=== PATIENT | male | born 1980 | race Caucasian/White ===

== ENCOUNTER 2018-08-26 20:22 | Emergency (ER) | payer MEDICAID ==
--- NOTE | 2018-08-26 21:17 | EDM.PDOC ---
ED HPI GENERAL MEDICAL PROBLEM - General Chief Complaint: Lower Extremity Injury/Pain Stated Complaint: KNEE PAIN RIGHT Time Seen by Provider: 08/26/18 20:44 Source of Information: Reports: Patient, RN Notes Reviewed, Significant Other ( Girlfriend) History Limitations: Reports: No Limitations - History of Present Illness INITIAL COMMENTS - FREE TEXT/NARRATIVE: The patient states that he developed right anterior knee pain this morning. 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 Other than hard work, the patient does not recall any direct injury to the knee. No prior similar symptoms. The patient states that he took 600 mg of ibuprofen at 10:00 this morning, then again at 18:00 this evening. He states that the ibuprofen DID help. The patient does not have a PCP. Right Knee Pain Score (Numeric/FACES): 7 - Related Data Allergies Allergy/AdvReac Type Severity Reaction Status Date / Time No Known Allergies Allergy Verified 08/26/18 20:44 Home Meds: Home Meds . [No Known Home Meds] 12/10/13 [History] Past Medical History Musculoskeletal History: Reports: Fracture (right hand) - Past Surgical History Musculoskeletal Surgical History: Reports: ORIF (right hand) Social & Family History - Tobacco Use Smoking Status *Q: Current Every Day Smoker Years of Tobacco use: 14 Packs/Tins Daily: 1 Packs/Tins Daily Comment: Down from 2 ppd - Caffeine Use Caffeine Use: Reports: Energy Drinks - Alcohol Use Alcohol Use History: No - Recreational Drug Use Recreational Drug Use: Yes Drug Use in Last 12 Months: No Recreational Drug Type: Reports: Marijuana/Hashish (last smoked 2005) - Living Situation & Occupation Living situation: Reports: , with Significant Other (Girlfriend) Occupation: Employed ([email or web address]) Review of Systems - Review of Systems Review Of Systems: ROS reveals no pertinent complaints other than HPI. ED EXAM, GENERAL - Physical Exam Exam: See Below Exam Limited By: No Limitations General Appearance: Alert, WD/WN, No Apparent Distress Extremities: Other (Mild swelling to the right knee, when compared to the left, however, no other visible abnormality, such as erythema, ecchymosis, or abrasion. There is tenderness to palpation of the patellar tendon, but no tenderness to a patient of the patella or quadriceps tendon. No laxity or pain induced with stressing of the lateral or medial collateral ligament. No tenderness to the posterior knee. Anterior and posterior drawer signs are absent. Neurovascular status of the right lower extremity is intact.) Course - Vital Signs Last Recorded V/S: Last Vital Signs Temp 36.6 C 08/26/18 20:41 Pulse 80 08/26/18 20:41 Resp 16 08/26/18 20:41 BP 123/81 08/26/18 20:41 Pulse Ox 98 08/26/18 20:41 - Re-Assessments/Exams Free Text/Narrative Re-Assessment/Exam: 08/26/18 21:07 Clinically, the patient has right patellar tendinitis, likely strained with heavy exertion at work. The patient states that he has the next 2 days off, but I will give him a note for light duty through Sunday. If his symptoms have not improved by Sunday, I would like him to follow-up in the clinic for an extension of a work note. In the meantime, I would like the patient take over- the-counter ibuprofen, and rest and ice the knee as much as possible. Departure - Departure Time of Disposition: 21:09 Disposition: Home, Self-Care 01 Condition: Good Clinical Impression: Patellar tendinitis of right knee - Discharge Information *PRESCRIPTION DRUG MONITORING PROGRAM REVIEWED*: Not Applicable *COPY OF PRESCRIPTION DRUG MONITORING REPORT IN PATIENT ROSE: Not Applicable Instructions: Tendinitis Referrals: PCP,None [Primary Care Provider] - Demetris Gillette PA [Physician Practice Consultant] - Forms: ED Department Discharge, ED Return to Work/School Form Additional Instructions: You were seen in the emergency room for pain and mild swelling to the front of your right knee, this morning. Based on your history and physical examination, you are suffering from right patellar tendinitis, due to a strain of your right patellar tendon. We recommend that you take [id number] ibuprofen, 2-3 tablets (400-600 mg) every 8 hours, with food, around the clock. Rest your right knee is much as possible, and keep an ice pack on it is much as possible for the next 2 days. A note for light duty has been provided to you. If your knee is still painful by 08/30/2018, please follow-up with RITA Dewey, or one of the other providers in the clinic, to get an extension of a note for work. If any other problems, please do not hesitate to return to the ER.
== END 2018-08-26 21:40 | disposition home or self-care (01) ==
LOC: JD.ED 20:22
DX: M76.51 Patellar tendinitis, right knee (principal); F17.210 Nicotine dependence, cigarettes, uncomplicated
CPT/HCPCS: 99283

== ENCOUNTER 2018-12-22 18:39 | Emergency (ER) | payer BC, MEDICAID ==
--- NOTE | 2018-12-22 19:24 | EDM.PDOC ---
ED HPI GENERAL MEDICAL PROBLEM - General Chief Complaint: Skin Complaint Stated Complaint: infection on leg Time Seen by Provider: 12/22/18 19:03 Source of Information: Reports: Patient, Significant Other (Fiance) History Limitations: Reports: No Limitations - History of Present Illness INITIAL COMMENTS - FREE TEXT/NARRATIVE: Mr. Hudson is a pleasant 38-year-old man with no chronic medical issues, who states that his proximal left leg was punctured with a wire at work on , 12/19/2018. He developed pain to the area on Sunday, which became much worse today, along with redness and swelling. He has not had a fever or drainage. He has not performed any home treatment to it whatsoever. The patient reports a history of MRSA, although denies using antibacterial soap at home. He denies visiting a relative in the hospital or alf. The patient does not have a PCP. He has not received an influenza vaccine this season. Left Lower Leg Pain Score (Numeric/FACES): 9 - Related Data Allergies Allergy/AdvReac Type Severity Reaction Status Date / Time No Known Allergies Allergy Verified 08/26/18 20:44 Home Meds: Home Meds . [No Known Home Meds] 12/10/13 [History] Past Medical History Musculoskeletal History: Reports: Fracture (right hand) - Infectious Disease History Infectious Disease History: Reports: MRSA - Past Surgical History Musculoskeletal Surgical History: Reports: ORIF (right hand) Social & Family History - Tobacco Use Smoking Status *Q: Current Every Day Smoker Years of Tobacco use: 15 Packs/Tins Daily: 1 Packs/Tins Daily Comment: Down from 2 ppd - Caffeine Use Caffeine Use: Reports: Coffee, Energy Drinks - Alcohol Use Alcohol Use History: No - Recreational Drug Use Recreational Drug Use: Yes Drug Use in Last 12 Months: No Recreational Drug Type: Reports: Marijuana/Hashish (last smoked 2005) - Living Situation & Occupation Living situation: Reports: , with Significant Other (Fiance) Occupation: Employed ([employer]) ED ROS GENERAL - Review of Systems Review Of Systems: ROS reveals no pertinent complaints other than HPI. ED EXAM, SKIN/RASH Exam: See Below Exam Limited By: No Limitations General Appearance: Alert, WD/WN, No Apparent Distress Extremities: Other (There is light erythema to the proximal medial left leg measuring approximately 16 cm diameter, with an area approximately 2 cm diameter of much darker erythema, and within the center of that, a punctate pustule. There is minimal calor associated with the light erythema, although the calor increases as one palpates towards the pustule. Neurovascular status of the left lower extremity is intact.) Course - Vital Signs Last Recorded V/S: Last Vital Signs Temp 37.0 C 12/22/18 19:00 Pulse 84 12/22/18 19:00 Resp 20 12/22/18 19:00 BP 135/88 12/22/18 19:00 Pulse Ox 98 12/22/18 19:00 - Orders/Labs/Meds Labs: Laboratory Tests 12/22/18 Range/Units 19:30 MRSA (PCR) Positive H Meds: Medications Discontinued Medications Generic Name Dose Route Start Last Admin Trade Name Rupali PRN Reason Stop Dose Admin Ibuprofen 600 mg 12/22/18 21:32 12/22/18 21:58 Motrin PO 12/22/18 21:33 600 mg ONETIME ONE Administration Influenza Virus Vaccine 1 each 12/22/18 19:04 Pharmacy To Dose - Influenza Vaccine IM 12/22/18 19:05 ONETIME ONE Influenza Virus Vaccine 60 mcg 12/22/18 19:30 12/22/18 19:28 Fluzone Quad [id number] Syringe IM 12/22/18 19:31 60 mcg .ONCE ONE Administration Trimethoprim/Sulfamethoxazole 1 tab 12/22/18 21:18 12/22/18 21:27 Septra Ds PO 12/22/18 21:19 1 tab ONETIME STA Administration - Re-Assessments/Exams Free Text/Narrative Re-Assessment/Exam: 12/22/18 19:21 The patient appears to have cellulitis to his medial proximal left leg, with a punctate pustule, which increases the likelihood that this will turner machine to be MRSA positive, especially since patient tells us that he has been MRSA positive in the past. I have ordered an MRSA screen by PCR, and if positive, I believe the patient can be treated with oral Bactrim; if negative, then I will start him on oral Keflex. I do not believe the patient requires IV antibiotics or hospitalization at this time. 12/22/18 21:19 The patient's MRSA by PCR screen has returned positive. I will start the patient on oral Bactrim DS, and prescribe a 10-day course. 12/22/18 21:40 MRSA screening results discussed with the patient and his fiance. The patient will be prescribed a 10-day course of Bactrim DS via [facility]. I will have the patient pen demark the edge of the erythema on his left leg in about 24 hours, when the cellulitis should be at its worst, and if the erythema progresses beyond the demarcation, then the patient should return to the ED for reevaluation and possible IV antibiotics. If the erythema regresses from the demarcation, the patient should simply finish his 10 day prescription. The patient received an influenza vaccine during this ED visit. Departure - Departure Time of Disposition: 21:45 Disposition: Home, Self-Care 01 Condition: Good Clinical Impression: MRSA cellulitis - Discharge Information *PRESCRIPTION DRUG MONITORING PROGRAM REVIEWED*: Not Applicable *COPY OF PRESCRIPTION DRUG MONITORING REPORT IN PATIENT ROSE: Not Applicable Instructions: Cellulitis, Adult, [id number], MRSA Infection, Adult Referrals: PCP,None [Primary Care Provider] - Forms: ED Department Discharge Additional Instructions: You were seen in the emergency room for painful redness to your left leg after being struck with a piece of wire. Workup in the ER included an MRSA by PCR screen, which returned positive, indicating that you are colonized with MRSA. History, physical examination, and ER test, you have MRSA cellulitis = your skin is infected with the MRSA bacteria. You have been started on the antibiotic trimethoprim-sulfamethoxazole. A prescription for trimethoprim-sulfamethoxazole has been provided to you via [facility]. Take one tablet of trimethoprim-sulfamethoxazole every 12 hours, starting tomorrow morning, 12/23/2018, as prescribed. Finish the entire prescription unless told otherwise by a doctor. You are to pen demark the edge of the redness on your leg tomorrow evening, 12/23/2018. After 24 hours, if the redness to your leg extends beyond the pen demarcation, please return to the ER for reevaluation and possible IV antibiotics. Do not pick at or pop the pustule, however, if it pops on its own, keep it clean with ordinary soap and water when you bathe. Cover it with a clean bandage , daily. If any other problems, please do not hesitate to return to the ER. *You received an influenza vaccine during your ED visit.*
[2018-12-22] MEDS ORDERED: FLU Vacc QS2019-20(6MOS+)/PF 60 MCG/0.5 ML SYRINGE IM ONE (19:30)
[2018-12-22] MEDS ORDERED: Sulfamethoxazole/Trimethoprim 800-160 MG Tab PO STA (21:18)
[2018-12-22] MEDS ORDERED: Ibuprofen 600 MG Tab PO ONE (21:32)
== END 2018-12-22 20:03 | disposition home or self-care (01) ==
LOC: JD.ED 18:39
DX: L03.116 Cellulitis of left lower limb (principal); B95.62 Methicillin resistant Staphylococcus aureus infection as the cause of diseases classified elsewhere; F17.210 Nicotine dependence, cigarettes, uncomplicated; Z23 Encounter for immunization; W22.8XXA Striking against or struck by other objects, initial encounter; Y92.89 Other specified places as the place of occurrence of the external cause; Y99.0 Civilian activity done for income or pay
CPT/HCPCS: 87641; 90471; 90686; 99283; A9270; G0008

== ENCOUNTER 2018-12-24 15:41 | Emergency (ER) | payer BC ==
[2018-12-24] MEDS ORDERED: Acetaminophen 325 MG Tab PO ONE (17:21)
[2018-12-24] MEDS ORDERED: Ketorolac 60 MG/2 ML SDV IM ONE (17:21)
[2018-12-24] MEDS ORDERED: Lidocaine 1% 50 ML MDV INJECT ONE (19:01)
--- NOTE | 2018-12-24 19:07 | EDM.PDOC ---
ED HPI GENERAL MEDICAL PROBLEM - General Chief Complaint: Skin Complaint Stated Complaint: L LEG INFECTION/SKIN COMPLAINT Time Seen by Provider: 12/24/18 17:14 Source of Information: Reports: Patient, RN Notes Reviewed - History of Present Illness INITIAL COMMENTS - FREE TEXT/NARRATIVE: 38-year-old male comes in with infection left lower leg. Does have history of previous MRSA infection right foot. He started developing pain erythema and swelling of the distal left lower medial leg about 5 days ago. Was evaluated 2 days ago, started on Bactrim DS twice a day. He states that the surrounding area of erythema has not really changed but locally the swelling and discomfort has worsened. No fever or chills. No other skin lesions. Has had a very small amount of drainage last evening and again this morning. Left Lower Leg Pain Score (Numeric/FACES): 10 - Related Data Allergies Allergy/AdvReac Type Severity Reaction Status Date / Time No Known Allergies Allergy Verified 12/24/18 15:51 Home Meds: Home Meds Acetaminophen/HYDROcodone [Ray 325-5 MG] 1 tab PO Q6H PRN #14 tablet 12/24/18 [Rx] Sulfamethoxazole/Trimethoprim [Sulfamethoxazole-Tmp Ds Tablet] 1 tab PO BID [History] Past Medical History - Past Health History Medical/Surgical History: Denies Medical/Surgical History Musculoskeletal History: Reports: Fracture Dermatologic History: Reports: Cellulitis - Infectious Disease History Infectious Disease History: Reports: MRSA - Past Surgical History Musculoskeletal Surgical History: Reports: ORIF Other Musculoskeletal Surgeries/Procedures:: hand Social & Family History - Family History Family Medical History: Noncontributory - Tobacco Use Smoking Status *Q: Current Every Day Smoker Years of Tobacco use: 15 Packs/Tins Daily: 1 - Caffeine Use Caffeine Use: Reports: Coffee, Energy Drinks - Recreational Drug Use Recreational Drug Use: No - Living Situation & Occupation Living situation: Reports: , with Significant Other (Fiance) Occupation: Employed ([employer]) ED ROS GENERAL - Review of Systems Review Of Systems: See Below Constitutional: Denies: Fever, Chills HEENT: Reports: No Symptoms Respiratory: Denies: Shortness of Breath Cardiovascular: Denies: Chest Pain GI/Abdominal: Denies: Abdominal Pain, Nausea, Vomiting Skin: Reports: Erythema (L lower leg), Other (skin otherwise clear) Neurological: Reports: No Symptoms ED EXAM, SKIN/RASH Exam: See Below General Appearance: Alert, No Apparent Distress Eye Exam: Bilateral Eye: PERRL Throat/Mouth: Normal Inspection Head: Atraumatic. No: Facial Swelling Neck: Supple, Full Range of Motion Respiratory/Chest: No Respiratory Distress, Lungs Clear, Normal Breath Sounds Cardiovascular: Regular Rate, Rhythm Extremities: Redness (Area of erythema L lower leg, about 6 cm with central area more inflamed, swollen, crusted, no active drainage, skin is otherwise clear). No: Pedal Edema Neurological: Alert, Oriented, No Motor/Sensory Deficits Skin: Warm, Dry ED SKIN PROCEDURES - I&D Site: L lower leg Local Anesthesia: Lidocaine: 1% Plain Drainage: Bloody, Small Amount Packed With: None Sterile Dressinx4(s) Course - Vital Signs Last Recorded V/S: Last Vital Signs Temp 98.0 F 12/24/18 15:47 Pulse 79 12/24/18 15:47 Resp 16 12/24/18 15:47 BP 117/76 12/24/18 15:47 Pulse Ox 96 12/24/18 15:47 - Orders/Labs/Meds Meds: Medications Discontinued Medications Generic Name Dose Route Start Last Admin Trade Name Rupali PRN Reason Stop Dose Admin Acetaminophen 975 mg 12/24/18 17:21 12/24/18 17:32 Tylenol PO 12/24/18 17:22 975 mg NOW ONE Administration Doxycycline Hyclate 200 mg 12/24/18 19:25 12/24/18 19:37 Vibramycin PO 12/24/18 19:26 200 mg ONETIME ONE Administration Ketorolac Tromethamine 60 mg 12/24/18 17:21 12/24/18 17:33 Toradol IM 12/24/18 17:22 60 mg ONETIME ONE Administration Lidocaine HCl 50 ml 12/24/18 19:01 12/24/18 19:20 Xylocaine 1% INJECT 12/24/18 19:02 50 ml ONETIME ONE Administration - Re-Assessments/Exams Free Text/Narrative Re-Assessment/Exam: 12/26/18 08:18 small amount of purulent blood drainage, not a large enough wound to pack. Have given doxycycline 200 mg PO, will have him continue that bid for 10 days, discharge instr. as documented. Departure - Departure Time of Disposition: 19:28 Disposition: Home, Self-Care 01 Condition: Fair Clinical Impression: MRSA cellulitis - Discharge Information Prescriptions: Acetaminophen/HYDROcodone [Ray 325-5 MG] 1 tab PO Q6H PRN #14 tablet PRN Reason: Pain Instructions: Cellulitis, Adult, [id number], MRSA Infection, Adult Referrals: PCP,None [Primary Care Provider] - Forms: ED Department Discharge Additional Instructions: Continue Bactrim DS twice daily as previously prescribed. Doxycycline 200 mg twice daily for 10 days, warm compresses every 3-4 hours while awake. Tylenol every 6-8 hours for mild to moderate discomfort or hydrocodone if needed for more severe pain. Do not drive or work when taking hydrocodone. Is recommended that you do take the remainder of this week off from work, return to work next Sunday as tolerated. Return to ED for recheck if not much better within 3-4 days as expected or if symptoms markedly worsening in any way.
[2018-12-24] MEDS ORDERED: Doxycycline 100 MG Cap PO ONE (19:25)
== END 2018-12-24 19:47 | disposition home or self-care (01) ==
LOC: JD.ED 15:41
DX: L03.116 Cellulitis of left lower limb (principal); B95.62 Methicillin resistant Staphylococcus aureus infection as the cause of diseases classified elsewhere; F17.210 Nicotine dependence, cigarettes, uncomplicated
CPT/HCPCS: 10060; 96372; 99283; A9270; J1885; J2001

== ENCOUNTER 2021-06-26 14:03 | Emergency (ER) | payer BC ==
[2021-06-26] MEDS ORDERED: Acetaminophen 325 MG Tab PO ONE (14:51)
== END 2021-06-26 15:22 | disposition home or self-care (01) ==
LOC: JD.ED 14:03
DX: S83.412A Sprain of medial collateral ligament of left knee, initial encounter (principal); F17.210 Nicotine dependence, cigarettes, uncomplicated; W00.0XXA Fall on same level due to ice and snow, initial encounter
CPT/HCPCS: 73562; 99283; A9270